=== PATIENT | female | born 1980 | race Caucasian/White ===

== ENCOUNTER 2017-08-17 20:05 | Observation (INO) ==
[2017-08-17] MEDS ORDERED: ONDANSETRON 4 MG/2 ML VIAL IV PRN (21:29)
[2017-08-17] MEDS ORDERED: MORPHINE 10 MG/1 ML VIAL IV PRN (21:29)
[2017-08-17] MEDS ORDERED: NITROGLYCERIN SL 0.4 MG TABLET SL PRN (21:36)
[2017-08-17 22:57] LABS: Troponin I Only < 0.015 NG/ML (0.00-0.045)
[2017-08-17] MEDS ORDERED: ACETAMINOPHEN 325 MG TABLET PO PRN (23:36)
[2017-08-18 04:03] LABS: Basophils % 0.3 % (0.0-0.8); Eosinophils # 0.2 10*3/uL (0.0-0.87); Eosinophils % 2.7 % (0.00-10.9); Hematocrit 36.1 VOL% (35.7-47.0); Hemoglobin 12.6 GM/DL (12.0-16.0); Immature Granulocytes % 0.3 %; Immature Granulocytes Absolute 0.02 #; Lymphocytes # 3.2 10*3/uL (1.4-4.0); Lymphocytes % 47.8 % (21.3-54.2); Mean Corpuscular HGB Conc 34.9 GM/DL (32-36); Mean Corpuscular Hemoglobin 34 PG (27-34); Mean Platelet Volume 8.9 FL (9.6-12.0); Monocytes # 0.4 10*3/uL (0.11-0.8); Monocytes % 6.6 % (1.7-12.7); Neutrophils # 2.8 10*3/uL (1.4-7.4); Neutrophils % 42.3 % (38.7-73.9); Platelet Count 254 T/CUMM (130-400); Red Blood Count 3.76 MC/CUMM (3.8-5.5); Red Cell Distribution Width 13.2 % (9.3-17.3); White Blood Count 6.6 T/CUMM (4-12)
[2017-08-18 04:43] LABS: Calcium 8.8 MG/DL (8.5-10.1); Potassium 3.6 MMOL/L (3.5-5.1); Risk Ratio 5.15; Thyroid Stimulating Hormone 2.57 uIU/ml (0.358-3.74); VLDL CHOLESTEROL 36.4 MG/DL
[2017-08-18] MEDS ORDERED: NICOTINE 21 MG/24 HR PATCH TRANSDERM SCH (09:00)
[2017-08-18] MEDS ORDERED: ASPIRIN EC 81 MG TABLET PO SCH (09:00)
[2017-08-18] MEDS ORDERED: CARVEDILOL 25 MG TABLET PO SCH (09:00)
[2017-08-18] MEDS ORDERED: CITALOPRAM 20 MG TABLET PO SCH (09:00)
[2017-08-18] MEDS ORDERED: ENOXAPARIN 40 MG/0.4 ML SYRINGE SUBCUT SCH (09:00)
[2017-08-18 15:32] VITALS: BP 146/75
[2017-08-18] MEDS ORDERED: ATORVASTATIN 40 MG TABLET PO SCH (21:00)
== END 2017-08-18 16:30 | disposition home or self-care (01) ==
LOC: N.EDINP 20:05 → N.ED 20:05 → N.TELEN 21:39
PROVIDERS: ADMIT Hospitalist; ATTEND Hospitalist

== ENCOUNTER 2020-11-01 00:11 | Observation (INO) ==
[2020-11-01 00:57] LABS: Basophils % 0.5 % (0.0-0.8); Eosinophils # 0.2 10*3/uL (0.0-0.87); Eosinophils % 2.9 % (0.00-10.9); Hematocrit 38.4 VOL% (35.7-47.0); Hemoglobin 12.6 GM/DL (12.0-16.0); Immature Granulocytes % 0.2 %; Immature Granulocytes Absolute 0.01 #; Lymphocytes # 2.9 10*3/uL (1.4-4.0); Lymphocytes % 49.3 % (21.3-54.2); Mean Corpuscular HGB Conc 32.8 GM/DL (32-36); Mean Corpuscular Volume 88.1 FL (87-102); Mean Platelet Volume 9.2 FL (9.6-12.0); Monocytes % 8.7 % (1.7-12.7); Neutrophils % 38.4 % (38.7-73.9); Platelet Count 175 T/CUMM (130-400); Red Blood Count 4.36 MC/CUMM (3.8-5.5); Red Cell Distribution Width 15.9 % (9.3-17.3)
[2020-11-01] MEDS ORDERED: ASPIRIN 325 MG TABLET PO STA (01:00)
[2020-11-01] MEDS ORDERED: NITROGLYCERIN 2% OINT 1 INCH/GM PACK TOP STA (01:00)
[2020-11-01] MEDS ORDERED: ALBUTEROL/IPRATROPIUM 3 ML NEB RESP TX STA (01:00)
[2020-11-01] MEDS ORDERED: methylPREDNISolone SOD SUC 125 MG/2 ML VIAL IV STA (01:00)
[2020-11-01] MEDS ORDERED: MORPHINE 4 MG/1 ML VIAL IV STA (01:00)
[2020-11-01] MEDS ORDERED: ONDANSETRON 4 MG/2 ML VIAL IV STA (01:00)
[2020-11-01 01:10] LABS: Alanine Aminotransferase 69 U/L (13-56); Albumin 3.7 G/DL (3.4-5.0); Alkaline Phosphatase 79 U/L (45-117); Aspartate Amino Transferase 31 U/L (0-37); Bilirubin,Total < 0.39 MG/DL (0.2-1.0); Blood Urea Nitrogen 8 MG/DL (7-18); Calcium 8.7 MG/DL (8.5-10.1); Carbon Dioxide 34 MMOL/L (21-32); Estimated Glom Filtration Rate 101 ML/MIN; Glucose 79 MG/DL (74-106); Osmolality,Calculated 271.7 MOS/KG (273-304); Potassium 3.5 MMOL/L (3.5-5.1); Sodium 138 MMOL/L (136-145); Total Protein 7.1 G/DL (6.4-8.2)
[2020-11-01 01:24] LABS: Eosinophils 4 % (0-10); Lymphocytes 48 % (20-55); Segmented Neutrophils 42 % (50-85); Total Cells Counted 100
[2020-11-01 01:25] LABS: Platelet Estimate Normal
[2020-11-01 01:29] LABS: INR 1.1
[2020-11-01 02:40] LABS: Bilirubin,Urine Negative (Negative); Blood, Urine Negative (Negative); Glucose,Urine (UA) Negative (Negative); Hyaline Casts,Urine 1 /LPF (0-3); Ketones,Urine Negative (Negative); Mucus,Urine Occasional /LPF (Occasional); Nitrite,Urine Negative (Negative); Protein,Urine Negative; RBC,Urine <1 /HPF (0-4); Squamous Epithelial Cell,Urine Occasional /HPF (0-10); Urine Appearance CLEAR (Clear); Urine Color Yellow (Yellow); WBC,Urine 1 /HPF (0-6)
[2020-11-01] MEDS ORDERED: GLUCAGON 1 MG VIAL IM PRN (03:30)
[2020-11-01] MEDS ORDERED: DEXTROSE 50% 25 GM/50 ML VIAL IV PRN (03:30)
[2020-11-01] MEDS ORDERED: DOCUSATE SODIUM 100 MG CAPSULE PO PRN (03:30)
[2020-11-01] MEDS ORDERED: ENOXAPARIN 40 MG/0.4 ML SYRINGE SUBCUT SCH (03:30)
[2020-11-01] MEDS ORDERED: MORPHINE 4 MG/1 ML VIAL IV PRN (03:30)
[2020-11-01] MEDS ORDERED: ONDANSETRON 4 MG/2 ML VIAL IV PRN (03:30)
[2020-11-01] MEDS ORDERED: hydrALAZINE 20 MG/1 ML VIAL IV PRN (03:30)
[2020-11-01] MEDS ORDERED: ACETAMINOPHEN 325 MG TABLET PO PRN (03:30)
[2020-11-01 03:34] LABS: Barbiturates Screen,Urine Negative (Negative); Benzodiazepines Screen,Urine Positive (Negative); Cannabinoid Screen,Urine Negative (Negative); Opiate Screen,Urine Positive (Negative); Phencyclidine Screen,Urine Negative (Negative)
[2020-11-01] MEDS ORDERED: NITROGLYCERIN SL 0.4 MG TABLET SL PRN (03:35)
[2020-11-01] MEDS ORDERED: NICOTINE 21 MG/24 HR PATCH TRANSDERM PRN (03:54)
[2020-11-01 05:16] LABS: Risk Ratio 3.38; Thyroid Stimulating Hormone 0.501 uIU/ml (0.358-3.74)
[2020-11-01 07:55] VITALS: BP 116/71
[2020-11-01] MEDS ORDERED: GABAPENTIN 400 MG CAPSULE PO SCH (09:00)
[2020-11-01] MEDS ORDERED: levETIRAcetam 500 MG TABLET PO SCH (09:00)
[2020-11-01] MEDS ORDERED: ASPIRIN EC 81 MG TABLET PO SCH (09:00)
[2020-11-01] MEDS ORDERED: PANTOPRAZOLE 40 MG TABLET PO SCH (09:00)
[2020-11-01] MEDS ORDERED: CLOPIDOGREL 75 MG TABLET PO SCH (09:00)
[2020-11-01] MEDS ORDERED: carvediloL 25 MG TABLET PO SCH (09:00)
== END 2020-11-01 08:22 | disposition left against medical advice (07) ==
LOC: N.EDINP 00:11 → N.ED 00:11 → N.EDINP 05:18 → N.TELES 05:49
PROVIDERS: ADMIT Internal Medicine; ATTEND Internal Medicine

== ENCOUNTER 2021-04-18 03:19 | Observation (INO) ==
[2021-04-18] MEDS ORDERED: ASPIRIN 325 MG TABLET PO STA (03:36)
[2021-04-18] MEDS ORDERED: ONDANSETRON 4 MG/2 ML VIAL IV STA (03:36)
[2021-04-18] MEDS ORDERED: NITROGLYCERIN 2% OINT 1 INCH/GM PACK TOP STA (03:36)
[2021-04-18] MEDS ORDERED: MORPHINE 2 MG/1 ML SYRINGE IV STA (03:36)
[2021-04-18 03:57] LABS: Basophils % 0.4 % (0.0-0.8); Eosinophils # 0.1 10*3/uL (0.0-0.87); Eosinophils % 1.2 % (0.00-10.9); Hematocrit 41.8 VOL% (35.7-47.0); Hemoglobin 13.6 GM/DL (12.0-16.0); Immature Granulocytes % 0.3 %; Immature Granulocytes Absolute 0.02 #; Lymphocytes # 3.1 10*3/uL (1.4-4.0); Lymphocytes % 42.6 % (21.3-54.2); Mean Corpuscular HGB Conc 32.5 GM/DL (32-36); Mean Corpuscular Volume 88.6 FL (87-102); Mean Platelet Volume 9.3 FL (9.6-12.0); Monocytes % 6.5 % (1.7-12.7); Platelet Count 350 T/CUMM (130-400); Red Blood Count 4.72 MC/CUMM (3.8-5.5); Red Cell Distribution Width 13.9 % (9.3-17.3); White Blood Count 7.3 T/CUMM (4-12)
[2021-04-18 04:06] LABS: Bacteria,Urine Occasional /HPF (Few); Bilirubin,Urine Negative (Negative); Blood, Urine Negative (Negative); Glucose,Urine (UA) Negative (Negative); Hyaline Casts,Urine 3 /LPF (0-3); Ketones,Urine Negative (Negative); Mucus,Urine Few /LPF (Occasional); Nitrite,Urine Negative (Negative); Protein,Urine Negative; RBC,Urine 3 /HPF (0-4); Squamous Epithelial Cell,Urine Occasional /HPF (0-10); Urine Appearance CLEAR (Clear); Urine Color Yellow (Yellow)
[2021-04-18] MEDS ORDERED: levETIRAcetam 500 MG/5 ML VIAL IV ONE (04:13)
[2021-04-18 05:08] LABS: Albumin 4.1 G/DL (3.4-5.0); Bilirubin,Total 0.4 MG/DL (0.20-1.00); Calcium 9.2 MG/DL (8.5-10.1); Osmolality,Calculated 277.4 MOS/KG (273-304); Potassium 3.9 MMOL/L (3.5-5.1); Total Protein 7.7 G/DL (6.4-8.2)
[2021-04-18] MEDS ORDERED: ENOXAPARIN 100 MG/ML SYRINGE SUBCUT STA (05:13)
[2021-04-18] MEDS ORDERED: MORPHINE 2 MG/1 ML SYRINGE IV PRN (05:18)
[2021-04-18] MEDS ORDERED: ONDANSETRON 4 MG/2 ML VIAL IV PRN (05:18)
[2021-04-18] MEDS ORDERED: ENOXAPARIN 60 MG/0.6 ML SYRINGE ONE (05:44)
[2021-04-18 06:37] LABS: Barbiturates Screen,Urine Negative (Negative); Benzodiazepines Screen,Urine Positive (Negative); Cannabinoid Screen,Urine Negative (Negative); Opiate Screen,Urine Negative (Negative); Phencyclidine Screen,Urine Negative (Negative)
[2021-04-18 06:58] VITALS: BP 134/68
[2021-04-18 07:35] LABS: Risk Ratio 3.02; VLDL Cholesterol 12.6 MG/DL
[2021-04-18] MEDS ORDERED: ROSUVASTATIN 20 MG TABLET PO SCH (09:00)
[2021-04-18] MEDS ORDERED: ASPIRIN EC 81 MG TABLET PO SCH (09:00)
[2021-04-18] MEDS ORDERED: PANTOPRAZOLE 40 MG TABLET PO SCH (09:00)
[2021-04-18] MEDS ORDERED: levETIRAcetam 500 MG TABLET PO SCH (21:00)
[2021-04-19] MEDS ORDERED: ENOXAPARIN 40 MG/0.4 ML SYRINGE SUBCUT SCH (09:00)
== END 2021-04-18 07:17 | disposition left against medical advice (07) ==
LOC: N.EDINP 03:19 → N.ED 03:19 → N.TELEN 06:57
PROVIDERS: ADMIT Internal Medicine; ATTEND Internal Medicine

== ENCOUNTER 2021-04-18 14:38 | Observation (INO) ==
[2021-04-18] MEDS ORDERED: ACETAMINOPHEN 325 MG TABLET PO PRN (17:11)
[2021-04-18] MEDS: ENOXAPARIN 40 MG/0.4 ML SYRINGE SUBCUT SCH (17:24)
[2021-04-18] MEDS: GABAPENTIN 300 MG CAPSULE PO SCH (21:03)
[2021-04-18] MEDS: BUPRENORPHINE NALOXONE SL SCH (21:03)
[2021-04-18] MEDS: carvediloL 25 MG TABLET PO SCH (21:03)
[2021-04-18] MEDS: levETIRAcetam 500 MG TABLET PO SCH (21:03)
[2021-04-18] MEDS: OLANZapine 5 MG TABLET PO SCH (22:39)
[2021-04-18] MEDS: BENZTROPINE 1 MG TABLET PO SCH (22:39)
[2021-04-19 05:39] LABS: Basophils % 0.5 % (0.0-0.8); Eosinophils # 0.1 10*3/uL (0.0-0.87); Eosinophils % 2.4 % (0.00-10.9); Hematocrit 34.9 VOL% (35.7-47.0); Hemoglobin 11.5 GM/DL (12.0-16.0); Immature Granulocytes % 0.2 %; Immature Granulocytes Absolute 0.01 #; Lymphocytes # 3.5 10*3/uL (1.4-4.0); Lymphocytes % 60.8 % (21.3-54.2); Mean Corpuscular Volume 91.4 FL (87-102); Mean Platelet Volume 9.2 FL (9.6-12.0); Monocytes % 7.9 % (1.7-12.7); Neutrophils % 28.2 % (38.7-73.9); Platelet Count 291 T/CUMM (130-400); Red Blood Count 3.82 MC/CUMM (3.8-5.5); Red Cell Distribution Width 14.2 % (9.3-17.3); White Blood Count 5.8 T/CUMM (4-12)
[2021-04-19 06:02] LABS: Bilirubin,Total 0.8 MG/DL (0.20-1.00); Calcium 8.5 MG/DL (8.5-10.1); Osmolality,Calculated 281.4 MOS/KG (273-304); Potassium 4.1 MMOL/L (3.5-5.1); Total Protein 6.2 G/DL (6.4-8.2)
[2021-04-19 06:07] LABS: Eosinophils 2 % (0-10); Hypochromasia 1+; Lymphocytes 52 % (20-55); Microcytosis 1+; Platelet Estimate Adequate; Segmented Neutrophils 31 % (50-85); Total Cells Counted 100
[2021-04-19] MEDS: carvediloL 25 MG TABLET PO SCH (09:38)
[2021-04-19] MEDS: levETIRAcetam 500 MG TABLET PO SCH ×2 (09:43→21:28)
[2021-04-19] MEDS: BUPRENORPHINE NALOXONE SL SCH ×3 (09:43→21:33)
[2021-04-19] MEDS: OLANZapine 5 MG TABLET PO SCH ×2 (09:43→21:28)
[2021-04-19] MEDS: VENLAFAXINE XR 75 MG CAPSULE PO SCH (09:43)
[2021-04-19] MEDS: GABAPENTIN 300 MG CAPSULE PO SCH ×3 (09:43→21:28)
[2021-04-19] MEDS: BENZTROPINE 1 MG TABLET PO SCH ×2 (09:43→21:28)
[2021-04-19] MEDS: ASPIRIN EC 81 MG TABLET PO SCH (09:43)
[2021-04-19] MEDS: CLOPIDOGREL 75 MG TABLET PO SCH (09:43)
[2021-04-19] MEDS ORDERED: KETOROLAC 30 MG/1 ML VIAL IV ONE (10:00)
[2021-04-19] MEDS: NICOTINE 21 MG/24 HR PATCH TRANSDERM SCH (14:51)
[2021-04-19] MEDS: carvediloL 6.25 MG TABLET PO SCH (16:40)
[2021-04-19] MEDS: ENOXAPARIN 40 MG/0.4 ML SYRINGE SUBCUT SCH (16:59)
[2021-04-20 04:34] LABS: Basophils % 0.8 % (0.0-0.8); Eosinophils # 0.1 10*3/uL (0.0-0.87); Lymphocytes # 1.6 10*3/uL (1.4-4.0); Lymphocytes % 39.7 % (21.3-54.2); Mean Corpuscular HGB Conc 31.4 GM/DL (32-36); Mean Corpuscular Volume 92.6 FL (87-102); Mean Platelet Volume 9.5 FL (9.6-12.0); Monocytes % 11.8 % (1.7-12.7); Neutrophils % 44.7 % (38.7-73.9); Platelet Count 241 T/CUMM (130-400); Red Blood Count 3.78 MC/CUMM (3.8-5.5); Red Cell Distribution Width 14.3 % (9.3-17.3)
[2021-04-20 04:55] LABS: Calcium 7.9 MG/DL (8.5-10.1); Osmolality,Calculated 273.7 MOS/KG (273-304); Potassium 4.2 MMOL/L (3.5-5.1)
[2021-04-20 08:09] VITALS: BP 105/45
[2021-04-20] MEDS: VENLAFAXINE XR 75 MG CAPSULE PO SCH (08:58)
[2021-04-20] MEDS: ASPIRIN EC 81 MG TABLET PO SCH (08:59)
[2021-04-20] MEDS: OLANZapine 5 MG TABLET PO SCH (08:59)
[2021-04-20] MEDS: CLOPIDOGREL 75 MG TABLET PO SCH (08:59)
[2021-04-20] MEDS: carvediloL 6.25 MG TABLET PO SCH (08:59)
[2021-04-20] MEDS: levETIRAcetam 500 MG TABLET PO SCH (09:00)
[2021-04-20] MEDS: BENZTROPINE 1 MG TABLET PO SCH (09:00)
[2021-04-20] MEDS ORDERED: ROSUVASTATIN 20 MG TABLET PO SCH (09:00)
[2021-04-20] MEDS: GABAPENTIN 300 MG CAPSULE PO SCH (09:48)
[2021-04-20] MEDS: BUPRENORPHINE NALOXONE SL SCH (09:49)
[2021-04-20] MEDS: NICOTINE 21 MG/24 HR PATCH TRANSDERM SCH (10:12)
== END 2021-04-20 13:17 | disposition home or self-care (01) ==
LOC: N.ED 14:38 → N.EDINP 14:38 → SUATTDRO 17:11 → N.5E 18:20
PROVIDERS: ADMIT Internal Medicine; ATTEND Internal Medicine

== ENCOUNTER 2021-12-29 02:13 | Inpatient (IN) ==
[2021-12-29] MEDS ORDERED: LACTATED RINGERS 2,000 ML IV ONE (02:43)
[2021-12-29] MEDS ORDERED: PANTOPRAZOLE 40 MG VIAL IV STA (02:49)
[2021-12-29] MEDS ORDERED: ONDANSETRON 4 MG/2 ML VIAL IV STA ×2 (02:49→05:26)
[2021-12-29] MEDS ORDERED: NOREPINEPHRINE 4 MG/4 ML VIAL IV ONE (03:05)
[2021-12-29 03:15] LABS: Bacteria,Urine Occasional /HPF (Few); Bilirubin,Urine Negative (Negative); Blood, Urine Negative (Negative); Glucose,Urine (UA) Negative (Negative); Hyaline Casts,Urine 7 /LPF (0-3); Ketones,Urine Negative (Negative); Mucus,Urine Occasional /LPF (Occasional); Nitrite,Urine Negative (Negative); Protein,Urine Trace mg/dL (Negative); RBC,Urine 5 /HPF (0-4); Squamous Epithelial Cell,Urine Occasional /HPF (0-10); Urine Appearance Clear (Clear); Urine Color Yellow (Yellow)
[2021-12-29 03:15] LABS: Basophils # 0.1 10*3/uL (0.0-0.2); Basophils % 0.3 % (0.0-0.8); Eosinophils # 0.1 10*3/uL (0.0-0.87); Eosinophils % 0.4 % (0.00-10.9); Hematocrit 51.3 VOL% (35.7-47.0); Hemoglobin 16.9 GM/DL (12.0-16.0); Immature Granulocytes Absolute 0.24 #; Lymphocytes # 4.2 10*3/uL (1.4-4.0); Lymphocytes % 16.7 % (21.3-54.2); Mean Corpuscular HGB Conc 32.9 GM/DL (32-36); Mean Corpuscular Volume 87.7 FL (87-102); Mean Platelet Volume 9.3 FL (9.6-12.0); Monocytes # 0.9 10*3/uL (0.11-0.8); Monocytes % 3.5 % (1.7-12.7); Neutrophils % 78.1 % (38.7-73.9); Platelet Count 194 T/CUMM (130-400); Red Blood Count 5.85 MC/CUMM (3.8-5.5); Red Cell Distribution Width 15.5 % (9.3-17.3); White Blood Count 25.3 T/CUMM (4-12)
[2021-12-29 03:16] LABS: Urine Urobilinogen 0.2 eU/dL (<2.0)
[2021-12-29] MEDS ORDERED: PIPERACILLIN/TAZOBACTAM 3,375 MG in SODIUM CHLORIDE 0.9% 100 ML IV STA (03:19)
[2021-12-29] MEDS: NOREPINEPHRINE 8 MG in SODIUM CHLORIDE 0.9% 242 ML IV PRN ×2 (03:22→11:00)
[2021-12-29 03:26] LABS: INR 2.3; PT Patient Result 23.5 SECS (10.5-12.0); Partial Thromboplastin Time 37.3 SECS (23.8-32.1)
[2021-12-29 03:32] LABS: Barbiturates Screen,Urine Negative (Negative); Benzodiazepines Screen,Urine Negative (Negative); Cannabinoid Screen,Urine Negative (Negative); Opiate Screen,Urine Negative (Negative); Phencyclidine Screen,Urine Negative (Negative)
[2021-12-29 03:41] LABS: Lymphocytes 20 % (20-55); Platelet Estimate Adequate; Total Cells Counted 100
[2021-12-29 03:42] LABS: Arterial Base Excess iSTAT -8 MMOL/L (-2.5-2.5); Arterial O2 Saturation iSTAT 97 % (95-100); Arterial PCO2 iSTAT 42 MM HG (35-48); Arterial PO2 iSTAT 99 MM HG (80-95); Arterial Total CO2 iSTAT 20 MMO/L (23-27); Arterial pH iSTAT 7.268 (7.35-7.45)
[2021-12-29] MEDS ORDERED: SODIUM CHLORIDE 0.9% 2,300 ML IV ONE (03:46)
[2021-12-29 03:52] LABS: Albumin 2.6 G/DL (3.4-5.0); Bilirubin,Total 0.5 MG/DL (0.20-1.00); Calcium 8.2 MG/DL (8.5-10.1); Osmolality,Calculated 279.5 MOS/KG (273-304); Total Protein 5.4 G/DL (6.4-8.2)
[2021-12-29 04:05] LABS: Amylase 45 U/L (25-115)
[2021-12-29] MEDS ORDERED: ALBUTEROL 2.5 MG/3 ML NEB RESP TX PRN (05:57)
[2021-12-29] MEDS ORDERED: PROMETHAZINE 25 MG/1 ML VIAL IM PRN (05:57)
[2021-12-29] MEDS ORDERED: ACETAMINOPHEN 325 MG TABLET PO PRN (05:57)
[2021-12-29] MEDS: SODIUM CHLORIDE 0.9% 1,000 ML IV SCH ×5 (06:17→22:05)
[2021-12-29] MEDS ORDERED: LORazepam 2 MG/1 ML VIAL IV PRN (06:51)
[2021-12-29] MEDS ORDERED: NICOTINE 21 MG/24 HR PATCH TRANSDERM PRN (06:52)
[2021-12-29] MEDS ORDERED: SODIUM CHLORIDE 0.9% 1,000 ML IV ONE (08:54)
[2021-12-29] MEDS: MORPHINE 2 MG/1 ML SYRINGE IV PRN (10:34)
[2021-12-29] MEDS: PIPERACILLIN/TAZOBACTAM 3,375 MG in SODIUM CHLORIDE 0.9% 100 ML IV SCH ×2 (14:10→21:49)
[2021-12-29] MEDS: LORazepam 2 MG/1 ML VIAL IV PRN (17:26)
[2021-12-29 17:51] LABS: Basophils % 0.2 % (0.0-0.8); Hematocrit 38.5 VOL% (35.7-47.0); Hemoglobin 12.6 GM/DL (12.0-16.0); Immature Granulocytes % 0.4 %; Immature Granulocytes Absolute 0.05 #; Lymphocytes # 0.8 10*3/uL (1.4-4.0); Lymphocytes % 6.8 % (21.3-54.2); Mean Corpuscular HGB Conc 32.7 GM/DL (32-36); Mean Corpuscular Volume 88.9 FL (87-102); Monocytes # 0.8 10*3/uL (0.11-0.8); Monocytes % 6.9 % (1.7-12.7); Neutrophils % 85.7 % (38.7-73.9); Platelet Count 186 T/CUMM (130-400); Red Blood Count 4.33 MC/CUMM (3.8-5.5); Red Cell Distribution Width 15.2 % (9.3-17.3); White Blood Count 11.8 T/CUMM (4-12)
[2021-12-29 18:23] LABS: Band Neutrophils 22 % (0-10); Lymphocytes 11 % (20-55); Total Cells Counted 100
[2021-12-29 18:24] LABS: Platelet Estimate Adequate
[2021-12-29] MEDS: PANTOPRAZOLE 40 MG VIAL IV SCH (21:49)
[2021-12-30 03:21] LABS: Basophils % 0.2 % (0.0-0.8); Hematocrit 33.1 VOL% (35.7-47.0); Immature Granulocytes % 0.5 %; Immature Granulocytes Absolute 0.07 #; Lymphocytes # 1.4 10*3/uL (1.4-4.0); Lymphocytes % 10.1 % (21.3-54.2); Mean Corpuscular HGB Conc 33.2 GM/DL (32-36); Mean Corpuscular Volume 87.1 FL (87-102); Mean Platelet Volume 9.3 FL (9.6-12.0); Monocytes % 7.5 % (1.7-12.7); Neutrophils % 81.7 % (38.7-73.9); Platelet Count 196 T/CUMM (130-400); Red Cell Distribution Width 15.4 % (9.3-17.3); White Blood Count 13.6 T/CUMM (4-12)
[2021-12-30 03:38] LABS: Alanine Aminotransferase 21 U/L (13-56); Albumin 2.4 G/DL (3.4-5.0); Alkaline Phosphatase 36 U/L (45-117); Aspartate Amino Transferase 39 U/L (0-37); Bilirubin,Total < 0.39 MG/DL (0.20-1.00); Blood Urea Nitrogen 15 MG/DL (7-18); Calcium 7.1 MG/DL (8.5-10.1); Carbon Dioxide 22 MMOL/L (21-32); Chloride 108 MMOL/L (98-107); Glucose 110 MG/DL (74-106); Osmolality,Calculated 276.7 MOS/KG (273-304); Potassium 3.3 MMOL/L (3.5-5.1); Sodium 138 MMOL/L (136-145); Total Protein 5.1 G/DL (6.4-8.2)
[2021-12-30 03:44] LABS: Lymphocytes 8 % (20-55); Platelet Estimate Normal; Total Cells Counted 100
[2021-12-30 03:46] LABS: Calcium 7.3 MG/DL (8.5-10.1); Osmolality,Calculated 276.7 MOS/KG (273-304); Potassium 3.4 MMOL/L (3.5-5.1); Thyroid Stimulating Hormone 0.239 uIU/ml (0.358-3.74)
[2021-12-30] MEDS ORDERED: POTASSIUM CHLORIDE 20 MEQ TABLET PO PRN (03:50)
[2021-12-30] MEDS ORDERED: MAGNESIUM SULF RIDER 4 GM/100 ML PREMIX IV PRN (03:52)
[2021-12-30] MEDS: MAGNESIUM SULF RIDER 2 GM/50 ML PREMIX IV PRN (04:00)
[2021-12-30] MEDS: POTASSIUM BICARB EFFERVESCENT 20 MEQ TAB.EFF PO PRN (04:00)
[2021-12-30] MEDS: PIPERACILLIN/TAZOBACTAM 3,375 MG in SODIUM CHLORIDE 0.9% 100 ML IV SCH ×3 (05:00→20:30)
[2021-12-30] MEDS ORDERED: POTASSIUM CHLORIDE RIDER 10 MEQ/100 ML PREMIX IV PRN (05:26)
[2021-12-30] MEDS: ONDANSETRON 4 MG/2 ML VIAL IV PRN ×2 (05:30→20:30)
[2021-12-30] MEDS: POTASSIUM CHLORIDE RIDER 20 MEQ/100 ML PREMIX IV PRN ×3 (05:50→14:00)
[2021-12-30] MEDS: SODIUM CHLORIDE 0.9% 1,000 ML IV SCH ×3 (06:00→22:06)
[2021-12-30] MEDS: LORazepam 2 MG/1 ML VIAL IV PRN (07:07)
[2021-12-30] MEDS ORDERED: PANTOPRAZOLE 40 MG VIAL IV SCH (09:00)
[2021-12-30] MEDS: PANTOPRAZOLE 40 MG VIAL IV SCH ×2 (10:53→20:30)
[2021-12-30 12:01] LABS: Hematocrit 31.3 VOL% (35.7-47.0); Hemoglobin 10.5 GM/DL (12.0-16.0)
[2021-12-30] MEDS: MORPHINE 2 MG/1 ML SYRINGE IV PRN ×2 (16:03→20:30)
[2021-12-30 19:34] LABS: Hematocrit 29.8 VOL% (35.7-47.0); Hemoglobin 9.7 GM/DL (12.0-16.0)
[2021-12-30] MEDS: BENZTROPINE 1 MG TABLET PO SCH (20:22)
[2021-12-30] MEDS: OLANZapine 5 MG TABLET PO SCH (20:22)
[2021-12-30] MEDS: levETIRAcetam 500 MG TABLET PO SCH (20:22)
[2021-12-31 00:32] LABS: Hematocrit 28.1 VOL% (35.7-47.0); Hemoglobin 9.3 GM/DL (12.0-16.0)
[2021-12-31] MEDS: SODIUM CHLORIDE 0.9% 1,000 ML IV SCH ×4 (01:31→23:49)
[2021-12-31 03:55] LABS: Basophils % 0.2 % (0.0-0.8); Eosinophils % 0.2 % (0.00-10.9); Hematocrit 26.8 VOL% (35.7-47.0); Hemoglobin 9.1 GM/DL (12.0-16.0); Immature Granulocytes % 0.3 %; Immature Granulocytes Absolute 0.02 #; Lymphocytes # 1.1 10*3/uL (1.4-4.0); Mean Corpuscular Volume 87.6 FL (87-102); Mean Platelet Volume 9.2 FL (9.6-12.0); Monocytes # 0.9 10*3/uL (0.11-0.8); Monocytes % 13.1 % (1.7-12.7); Neutrophils % 69.2 % (38.7-73.9); Platelet Count 160 T/CUMM (130-400); Red Blood Count 3.06 MC/CUMM (3.8-5.5); Red Cell Distribution Width 15.7 % (9.3-17.3); White Blood Count 6.5 T/CUMM (4-12)
[2021-12-31] MEDS: MORPHINE 2 MG/1 ML SYRINGE IV PRN ×4 (03:56→20:17)
[2021-12-31 04:20] LABS: Lymphocytes 15 % (20-55); Platelet Estimate Adequate; Total Cells Counted 100
[2021-12-31 04:24] LABS: Bilirubin,Total 0.4 MG/DL (0.20-1.00); Calcium 7.1 MG/DL (8.5-10.1); Osmolality,Calculated 272.7 MOS/KG (273-304); Potassium 3.6 MMOL/L (3.5-5.1); Total Protein 4.8 G/DL (6.4-8.2)
[2021-12-31] MEDS: PIPERACILLIN/TAZOBACTAM 3,375 MG in SODIUM CHLORIDE 0.9% 100 ML IV SCH ×3 (05:00→21:00)
[2021-12-31] MEDS: OLANZapine 5 MG TABLET PO SCH ×2 (08:39→21:00)
[2021-12-31] MEDS: levETIRAcetam 500 MG TABLET PO SCH ×2 (08:39→21:00)
[2021-12-31] MEDS: ROSUVASTATIN 20 MG TABLET PO SCH (08:39)
[2021-12-31] MEDS: BENZTROPINE 1 MG TABLET PO SCH ×2 (08:39→21:00)
[2021-12-31] MEDS: PANTOPRAZOLE 40 MG VIAL IV SCH ×2 (08:39→21:00)
[2021-12-31] MEDS: POTASSIUM BICARB EFFERVESCENT 20 MEQ TAB.EFF PO PRN (08:40)
[2022-01-01] MEDS: SODIUM CHLORIDE 0.9% 1,000 ML IV SCH ×5 (01:04→22:01)
[2022-01-01] MEDS: MORPHINE 2 MG/1 ML SYRINGE IV PRN ×4 (03:40→14:24)
[2022-01-01 03:50] LABS: Basophils % 0.2 % (0.0-0.8); Eosinophils # 0.1 10*3/uL (0.0-0.87); Eosinophils % 1.6 % (0.00-10.9); Hematocrit 25.1 VOL% (35.7-47.0); Hemoglobin 8.3 GM/DL (12.0-16.0); Immature Granulocytes % 0.5 %; Immature Granulocytes Absolute 0.03 #; Lymphocytes # 0.9 10*3/uL (1.4-4.0); Lymphocytes % 15.5 % (21.3-54.2); Mean Corpuscular HGB Conc 33.1 GM/DL (32-36); Mean Corpuscular Volume 88.7 FL (87-102); Mean Platelet Volume 9.3 FL (9.6-12.0); Monocytes # 0.7 10*3/uL (0.11-0.8); Monocytes % 12.3 % (1.7-12.7); Neutrophils % 69.9 % (38.7-73.9); Platelet Count 148 T/CUMM (130-400); Red Blood Count 2.83 MC/CUMM (3.8-5.5); Red Cell Distribution Width 15.9 % (9.3-17.3); White Blood Count 5.8 T/CUMM (4-12)
[2022-01-01 04:08] LABS: Calcium 7.4 MG/DL (8.5-10.1); Osmolality,Calculated 268.8 MOS/KG (273-304); Potassium 3.4 MMOL/L (3.5-5.1)
[2022-01-01 04:12] LABS: Eosinophils 2 % (0-10); Lymphocytes 10 % (20-55); Total Cells Counted 100
[2022-01-01 04:13] LABS: Hypochromia Slight; Microcytosis Slight; Platelet Estimate Adequate
[2022-01-01 04:30] LABS: Bilirubin,Total 0.4 MG/DL (0.20-1.00); Calcium 6.8 MG/DL (8.5-10.1); Osmolality,Calculated 272.5 MOS/KG (273-304); Potassium 3.4 MMOL/L (3.5-5.1); Total Protein 4.2 G/DL (6.4-8.2)
[2022-01-01] MEDS: POTASSIUM CHLORIDE RIDER 20 MEQ/100 ML PREMIX IV PRN (05:00)
[2022-01-01] MEDS: MAGNESIUM SULF RIDER 2 GM/50 ML PREMIX IV PRN (05:00)
[2022-01-01] MEDS: PIPERACILLIN/TAZOBACTAM 3,375 MG in SODIUM CHLORIDE 0.9% 100 ML IV SCH ×3 (05:00→21:00)
[2022-01-01] MEDS: POTASSIUM CHLORIDE 20 MEQ TABLET PO ONE ×2 (08:16→10:11)
[2022-01-01] MEDS: LACTATED RINGERS 1,000 ML IV SCH (08:20)
[2022-01-01] MEDS ORDERED: propofoL 200 MG/20 ML VIAL IV ONE (08:53)
[2022-01-01] MEDS ORDERED: LIDOCAINE 100 MG/5 ML SYRINGE ONE (08:53)
[2022-01-01] MEDS: OLANZapine 5 MG TABLET PO SCH ×2 (10:11→21:00)
[2022-01-01] MEDS: BISACODYL 5 MG TABLET PO SCH ×2 (10:11→17:46)
[2022-01-01] MEDS: BENZTROPINE 1 MG TABLET PO SCH ×2 (10:12→21:00)
[2022-01-01] MEDS: ROSUVASTATIN 20 MG TABLET PO SCH (10:12)
[2022-01-01] MEDS: levETIRAcetam 500 MG TABLET PO SCH ×2 (10:12→21:00)
[2022-01-01] MEDS: PANTOPRAZOLE 40 MG VIAL IV SCH ×2 (11:00→21:00)
[2022-01-01] MEDS: ONDANSETRON 4 MG/2 ML VIAL IV PRN ×2 (11:24→19:05)
[2022-01-01] MEDS ORDERED: hydrALAZINE 20 MG/1 ML VIAL IM PRN (15:31)
[2022-01-01] MEDS ORDERED: MORPHINE 2 MG/1 ML SYRINGE IV PRN (17:35)
[2022-01-01] MEDS ORDERED: POLYETHYLENE GLYCOL POWDER 255 GM BOTTLE PO ONE (18:00)
[2022-01-01] MEDS ORDERED: MAGNESIUM CITRATE 300 ML BOTTLE PO ONE (21:00)
[2022-01-01] MEDS: carvediloL 25 MG TABLET PO SCH (21:00)
[2022-01-02] MEDS: BISACODYL 5 MG TABLET PO SCH (01:32)
[2022-01-02 04:22] LABS: Basophils % 0.3 % (0.0-0.8); Eosinophils # 0.1 10*3/uL (0.0-0.87); Eosinophils % 1.7 % (0.00-10.9); Hematocrit 26.7 VOL% (35.7-47.0); Hemoglobin 8.5 GM/DL (12.0-16.0); Immature Granulocytes % 0.8 %; Immature Granulocytes Absolute 0.05 #; Lymphocytes # 0.9 10*3/uL (1.4-4.0); Lymphocytes % 15.4 % (21.3-54.2); Mean Corpuscular HGB Conc 31.8 GM/DL (32-36); Mean Corpuscular Volume 89.6 FL (87-102); Mean Platelet Volume 9.5 FL (9.6-12.0); Monocytes # 0.8 10*3/uL (0.11-0.8); Monocytes % 13.2 % (1.7-12.7); Neutrophils % 68.6 % (38.7-73.9); Platelet Count 214 T/CUMM (130-400); Red Blood Count 2.98 MC/CUMM (3.8-5.5); Red Cell Distribution Width 16.1 % (9.3-17.3); White Blood Count 5.9 T/CUMM (4-12)
[2022-01-02 04:35] LABS: Calcium 7.6 MG/DL (8.5-10.1); Osmolality,Calculated 268.8 MOS/KG (273-304); Potassium 3.3 MMOL/L (3.5-5.1)
[2022-01-02 04:42] LABS: Eosinophils 1 % (0-10); Hypochromia Slight; Lymphocytes 20 % (20-55); Microcytosis Slight; Platelet Estimate Adequate; Total Cells Counted 100
[2022-01-02] MEDS: PIPERACILLIN/TAZOBACTAM 3,375 MG in SODIUM CHLORIDE 0.9% 100 ML IV SCH ×3 (05:00→21:30)
[2022-01-02] MEDS: POTASSIUM CHLORIDE RIDER 10 MEQ/100 ML PREMIX IV SCH ×3 (05:27→06:36)
[2022-01-02] MEDS: MAGNESIUM SULF RIDER 2 GM/50 ML PREMIX IV PRN ×2 (05:29→19:34)
[2022-01-02] MEDS: SODIUM CHLORIDE 0.9% 1,000 ML IV SCH ×3 (06:35→22:12)
[2022-01-02] MEDS ORDERED: POTASSIUM CHLORIDE 20 MEQ TABLET PO ONE (07:32)
[2022-01-02] MEDS: OLANZapine 5 MG TABLET PO SCH ×2 (09:59→21:30)
[2022-01-02] MEDS: carvediloL 25 MG TABLET PO SCH ×2 (09:59→21:29)
[2022-01-02] MEDS: levETIRAcetam 500 MG TABLET PO SCH ×2 (09:59→21:29)
[2022-01-02] MEDS: ROSUVASTATIN 20 MG TABLET PO SCH (09:59)
[2022-01-02] MEDS: BENZTROPINE 1 MG TABLET PO SCH ×2 (09:59→21:29)
[2022-01-02] MEDS: PANTOPRAZOLE 40 MG VIAL IV SCH ×2 (10:00→21:29)
[2022-01-02] MEDS: LACTATED RINGERS 1,000 ML IV SCH (13:41)
[2022-01-02] MEDS ORDERED: propofoL 200 MG/20 ML VIAL IV ONE ×2 (14:10→14:28)
[2022-01-02] MEDS ORDERED: LIDOCAINE 100 MG/5 ML SYRINGE ONE (14:10)
[2022-01-03] MEDS: PIPERACILLIN/TAZOBACTAM 3,375 MG in SODIUM CHLORIDE 0.9% 100 ML IV SCH (04:28)
[2022-01-03 05:14] VITALS: BP 120/72
[2022-01-03 08:04] LABS: Basophils % 0.6 % (0.0-0.8); Eosinophils # 0.3 10*3/uL (0.0-0.87); Eosinophils % 4.2 % (0.00-10.9); Hematocrit 26.8 VOL% (35.7-47.0); Immature Granulocytes % 1.2 %; Immature Granulocytes Absolute 0.08 #; Lymphocytes # 1.4 10*3/uL (1.4-4.0); Lymphocytes % 21.3 % (21.3-54.2); Mean Corpuscular HGB Conc 33.6 GM/DL (32-36); Mean Platelet Volume 9.7 FL (9.6-12.0); Monocytes # 1.3 10*3/uL (0.11-0.8); Monocytes % 19.5 % (1.7-12.7); Neutrophils % 53.2 % (38.7-73.9); Platelet Count 229 T/CUMM (130-400); Red Blood Count 3.08 MC/CUMM (3.8-5.5); Red Cell Distribution Width 16.6 % (9.3-17.3); White Blood Count 6.7 T/CUMM (4-12)
[2022-01-03 08:24] LABS: Band Neutrophils 1 % (0-10); Eosinophils 6 % (0-10); Lymphocytes 25 % (20-55); Platelet Estimate Adequate; Total Cells Counted 100
[2022-01-03 08:25] LABS: Hypochromia Slight; Microcytosis Slight
[2022-01-03] MEDS: LACTATED RINGERS 1,000 ML IV SCH (09:10)
[2022-01-03] MEDS: levETIRAcetam 500 MG TABLET PO SCH ×2 (10:00→20:53)
[2022-01-03] MEDS: AMOXICILLIN/CLAV 875 MG TABLET PO SCH ×2 (10:00→19:09)
[2022-01-03] MEDS: ROSUVASTATIN 20 MG TABLET PO SCH ×2 (10:00→10:01)
[2022-01-03] MEDS: PANTOPRAZOLE 40 MG TABLET PO SCH ×2 (10:01→19:09)
[2022-01-03] MEDS: BENZTROPINE 1 MG TABLET PO SCH ×2 (10:01→20:53)
[2022-01-03] MEDS: carvediloL 25 MG TABLET PO SCH ×2 (10:06→20:53)
[2022-01-03] MEDS: OLANZapine 5 MG TABLET PO SCH ×2 (10:06→20:53)
[2022-01-03] MEDS: SODIUM CHLORIDE 0.9% 1,000 ML IV SCH (13:23)
[2022-01-03] MEDS: ONDANSETRON 4 MG/2 ML VIAL IV PRN (15:16)
[2022-01-04 04:18] LABS: Basophils % 0.4 % (0.0-0.8); Eosinophils # 0.3 10*3/uL (0.0-0.87); Hematocrit 26.4 VOL% (35.7-47.0); Hemoglobin 8.5 GM/DL (12.0-16.0); Immature Granulocytes % 2.8 %; Lymphocytes % 41.5 % (21.3-54.2); Mean Corpuscular HGB Conc 32.2 GM/DL (32-36); Mean Corpuscular Volume 90.4 FL (87-102); Mean Platelet Volume 9.6 FL (9.6-12.0); Monocytes % 13.2 % (1.7-12.7); Neutrophils % 38.1 % (38.7-73.9); Platelet Count 307 T/CUMM (130-400); Red Blood Count 2.92 MC/CUMM (3.8-5.5); Red Cell Distribution Width 17.2 % (9.3-17.3); White Blood Count 7.2 T/CUMM (4-12)
[2022-01-04 04:33] LABS: Calcium 7.2 MG/DL (8.5-10.1); Osmolality,Calculated 277.3 MOS/KG (273-304); Potassium 3.8 MMOL/L (3.5-5.1)
[2022-01-04 04:38] LABS: Eosinophils 4 % (0-10); Lymphocytes 48 % (20-55); Platelet Estimate Normal; Total Cells Counted 100
[2022-01-04] MEDS: AMOXICILLIN/CLAV 875 MG TABLET PO SCH (06:15)
[2022-01-04] MEDS: PANTOPRAZOLE 40 MG TABLET PO SCH (06:15)
[2022-01-04] MEDS: LACTATED RINGERS 1,000 ML IV SCH (06:23)
[2022-01-04] MEDS: ROSUVASTATIN 20 MG TABLET PO SCH (09:10)
[2022-01-04] MEDS: OLANZapine 5 MG TABLET PO SCH (09:10)
[2022-01-04] MEDS: carvediloL 25 MG TABLET PO SCH (09:10)
[2022-01-04] MEDS: BENZTROPINE 1 MG TABLET PO SCH (09:10)
[2022-01-04] MEDS: levETIRAcetam 500 MG TABLET PO SCH (09:20)
== END 2022-01-04 17:15 | disposition home or self-care (01) | DRG 393 ==
LOC: EDUNIT# → N.ED 02:13 → N.EDINP 05:56 → SUATTDRO 05:56 → N.CC 08:22
PROVIDERS: ADMIT Internal Medicine; ATTEND Family Medicine
PROC: COLONBX (2022-01-02 08:00)